=== PATIENT | male | born 1950 | race Caucasian/White ===

== ENCOUNTER 2019-03-29 08:11 | Outpatient (CLI) | payer MEDICARE, SELFPAY ==
--- NOTE | 2019-04-04 02:34 | SLEEP_ITS ---
Split Night Sleep Study DATE OF STUDY: 03/29/2019 REASON FOR THIS STUDY: Obstructive sleep apnea syndrome. HISTORY: This patient is a 68-year-old male, 71 inches tall, weighing 240 pounds with a body mass index of 33.5. He has occasional daytime fatigue and awakens with a dry mouth. He is a loud snorer. He has central obesity. He has a history of polycythemia requiring phlebotomy. Normal bedtime is 9 p.m., waking at 5 in the morning, feeling exhausted. He does not have morning headaches. He denies taking naps in the day. He does fall asleep inappropriately during the day and has drowsiness while driving. He does not fall asleep while driving. He does become sleepy while watching television or reading. This has been going on for longer than 2 years. He occasionally snores loudly enough that others complain about it. He rarely has trouble sleeping with a cold. He does not gasp for breath at night. He rarely has breathing problems reported to him by others. He does not sweat excessively at night or noticed his heart pounding irregularly at night. He does not have loss of muscle tone with strong emotion. He does not feel paralyzed on waking or falling asleep. Does not have vivid dreamlike scenes upon awakening or falling asleep and is not afraid to go to sleep. He does not have nightmares. He frequently remembers his dreams. He rarely has racing thoughts. He does not feel sad, depressed, or anxious. He denies muscular tension, does not notice parts of his body jerking and he does not kick at night. He does not have crawly achy feelings in his legs or leg pain at night. He does not have morning jaw pain. He rarely grinds his teeth at night. He rarely is bothered by pain during the day. He is not awakened with pain at night. He occasionally wakes up feeling stiff in the morning, rarely with sore achy muscles. He has a dizziness. Normal bedtime is 11 p.m., taking 5 to 10 minutes to fall asleep, typically waking twice at night for 3 to 4 minutes. During that time, he will use the bathroom. He wakes for the day at 6:30 a.m. He does not take naps. A short nap is really not refreshing. He feels better in the morning than other times a day. MEDICAL COMORBIDITIES: 1. Hypertension. 2. Seasonal allergies. 3. Polycythemia. 4. Gastroesophageal reflux disease. 5. Hyperlipidemia. MEDICATIONS: 1. Finasteride 5 mg a day. 2. Lisinopril 40 mg a day. 3. Metoprolol succinate extended release 100 mg daily. 4. Restasis 0.05% drops daily. 5. Indapamide 2.5 mg daily. 6. Aspirin 81 mg a day. HABITS: Never smoked tobacco. Caffeine, 2 to 3 per day. No alcohol. No recreational drugs. DESCRIPTION OF THE STUDY: On the Shelly Sleepiness Scale, the score is 4. This was conducted as a split night nocturnal polysomnogram using the [employer] multiple channel system including EOG, EEG, submental EMG, EKG, nasal and oral airflow using thermistors and nasal pressure sensors, chest and abdominal belts, body position data and pulse oximetry. The study was scored using [facility] guidelines. During the baseline portion, 194 minutes of recording time occurred. A 129.2 minutes of sleep occurred. The patient had a sleep efficiency of 66.6%. Sleep latency was 20.4 minutes. REM latency was 130.5 minutes. There were 33 awakenings and the patient spent 44.5 minutes awake after sleep onset. Sleep architecture showed 22.8% stage I sleep, 67.5% stage II sleep, no stage III sleep, and 9.7% stage REM. The patient did not have any supine sleep during this portion. Sleep was very fragmented with frequent shifts between wake stage I and stage II. The apnea-hypopnea index was 15.8, the obstructive index was 13.5, and the central index was 2.3. The patient had 5 obstructive hypopneas in non-sup
== END 2019-03-29 08:12 | disposition home or self-care (01) ==
LOC: ANHCSM 08:15
PROVIDERS: Visit Provider Family Medicine
DX: G47.33 Obstructive sleep apnea (adult) (pediatric) (principal); D75.1 Secondary polycythemia
CPT/HCPCS: 95811

== ENCOUNTER 2021-03-12 00:14 | Day surgery (SDC) | payer MEDICARE, SELFPAY ==
[2021-02-25 13:35] VITALS: BMI 35.2
[2021-03-12 08:20] VITALS: BP 121/75; PULSE 103; RESP 18; TEMP 36.6; O2SAT 96; BMI 34.6
[2021-03-12] MEDS: LACTATED RINGERS 1,000 ML 150 ML IV CONT (08:37)
--- NOTE | 2021-03-12 08:43 | WPDANESEPPF ---
Anes - Initial Pre Proc Eval Procedure: Operation Date: 03/12/21 09:45 Proposed Procedures p Screening Colonoscopy - Bandar Matute MD Date/Time: 03/12/21 08:43 Surgeon: Bandar Matute MD Pre Op Diagnosis: neoplasm screening Patient Data Age: 70 Gender: M Height: 1.8 m Weight: 112.6 kg Last Vital Signs Temp 36.6 C 03/12/21 08:20 Pulse 103 H 03/12/21 08:20 Resp 18 03/12/21 08:20 BP 121/75 03/12/21 08:20 Pulse Ox 96 03/12/21 08:20 Allergies Allergy/AdvReac Type Severity Reaction Status Date / Time castor oil Allergy Unknown THROAT AND Verified 03/12/21 08:29 EYES SWELL grass pollen Allergy Unknown Unknown Verified 03/12/21 08:29 castor beans Allergy Mild Swelling Uncoded 02/25/21 13:32 Home Medications Medication Instructions Recorded Confirmed Type aspirin 325 mg tablet 325 mg PO DAILY 01/19/19 03/12/21 History finasteride 5 mg tablet 5 mg PO DAILY 01/19/19 03/12/21 History cyclosporine 0.05 % eye drops in a 1 drop EACH EYE Q12H 01/25/19 03/12/21 History dropperette epinephrine 0.3 mg/0.3 mL 0.3 mg IM ONCE 01/25/19 03/12/21 History injection, auto-injector atorvastatin 20 mg tablet 20 mg PO QHS #90 tablet 09/13/20 03/12/21 Rx pantoprazole 40 mg tablet,delayed 40 mg PO QAM #90 tablet 09/13/20 03/12/21 Rx release indapamide 2.5 mg tablet 2.5 mg PO QAM #90 tablet 02/28/21 03/12/21 Rx lisinopril 40 mg tablet See Rx Instructions .ROUTE 02/28/21 03/12/21 Rx .COMPLEX #90 tablet metoprolol succinate 100 mg 100 mg PO DAILY #90 tablet 03/01/21 03/12/21 Rx tablet,extended release 24 hr Patient hx anesthesia problems: none Family hx anesthesia problems: none Results Review: All pre-operative results and documents have been reviewed as part of the pre-operative evaluation. [facility] Past Medical History Medical History CKD (chronic kidney disease) stage 3, GFR 30-59 ml/min Environmental allergies GERD with esophagitis HTN (hypertension) Hyperlipidemia ROSA ISELA on CPAP Polycythemia Prediabetes Surgical History Surgical History History of left hip replacement 2018 History of sinus surgery (~1991) polypectomy History of tonsillectomy (~7) Family History Family History Grandparent Diabetes mellitus Other Diabetes mellitus Social History Social History Smoking status: Never smoker Second hand tobacco smoke exposure: No Alcohol intake: current Alcohol use details: seldom Substance use: never Substance use type: does not use Living arrangements: with family Spiritual care concerns: No Anes - Eval Final PreProcedure Day of Procedure 03/12/21 08:43 Patient weight: obese Heart: regular rate and rhythm Lungs: clear to auscultation Airway: Mallampati scale class II Neurological: alert and oriented Last oral intake: >/= 8 hours ASA classification: III Emergent: no Anesthetic plan: proceed Anesthesia type and monitoring: general GIVS and standard monitoring Results Review: All pre-operative results and documents have been reviewed as part of the pre-operative evaluation. Informed Consent: The patient's anesthetic plan and its attendant risks and benefits were discussed with the patient/family/POA. Questions were solicited and answers provided to the satisfaction of the patient/family/POA.
--- NOTE | 2021-03-12 09:34 | PM.HPGS ---
History of Present Illness History of Present Illness Consent: Risks, benefits, and alternatives have been discussed and questions answered. Patient agrees to proceed with procedure. Chief complaint: neoplasm screening Narrative: Kehinde Villanueva is a 70 year old male here for first screening colonoscopy Review of Systems Constitutional: Constitutional: Denies headache(s) and Denies weakness Eyes: Eyes: Denies blurry vision ENT: Reports Normal hearing present, Denies headache(s) and Denies neck pain Cardiovascular: Cardiovascular: Denies chest pain and Denies dyspnea Respiratory: Respiratory: Denies dyspnea Gastrointestinal: Gastrointestinal: Reports no additional gastrointestinal complaints Genitourinary: Genitourinary: Denies dysuria Musculoskeletal: Musculoskeletal: Denies neck pain Integumentary/Breasts: Skin/Breast: Denies dry skin Neurologic: Reports Normal hearing present, Denies headache(s) and Denies weakness Psychiatric: Psychiatric: Denies anxiety Endocrine: Endocrine: Denies change in body appearance Hematologic/Lymphatic: Hematologic/Lymphatic: Denies easy bleeding Allergic/Immunologic: Allergic/Immunologic: Denies urticaria [facility] Past Medical History Medical History (Updated 03/12/21 @ 09:34 by Bandar Matute MD) CKD (chronic kidney disease) stage 3, GFR 30-59 ml/min Colon cancer screening Environmental allergies GERD with esophagitis HTN (hypertension) Hyperlipidemia ROSA ISELA on CPAP Polycythemia Prediabetes Surgical History Surgical History History of left hip replacement 2018 History of sinus surgery (~1991) polypectomy History of tonsillectomy (~1957) Family History Family History Grandparent Diabetes mellitus Other Diabetes mellitus Social History Social History Smoking status: Never smoker Second hand tobacco smoke exposure: No Alcohol intake: current Alcohol use details: seldom Substance use: never Substance use type: does not use Living arrangements: with family Spiritual care concerns: No Meds Home Medications and Allergies Home Medications Medication Instructions Recorded Confirmed Type aspirin 325 mg tablet 325 mg PO DAILY 01/19/19 03/12/21 History finasteride 5 mg tablet 5 mg PO DAILY 01/19/19 03/12/21 History cyclosporine 0.05 % eye drops in a 1 drop EACH EYE Q12H 01/25/19 03/12/21 History dropperette epinephrine 0.3 mg/0.3 mL 0.3 mg IM ONCE 01/25/19 03/12/21 History injection, auto-injector atorvastatin 20 mg tablet 20 mg PO QHS #90 tablet 09/13/20 03/12/21 Rx pantoprazole 40 mg tablet,delayed 40 mg PO QAM #90 tablet 09/13/20 03/12/21 Rx release indapamide 2.5 mg tablet 2.5 mg PO QAM #90 tablet 02/28/21 03/12/21 Rx lisinopril 40 mg tablet See Rx Instructions .ROUTE 02/28/21 03/12/21 Rx .COMPLEX #90 tablet metoprolol succinate 100 mg 100 mg PO DAILY #90 tablet 03/01/21 03/12/21 Rx tablet,extended release 24 hr Allergies Allergy/AdvReac Type Severity Reaction Status Date / Time castor oil Allergy Unknown THROAT AND Verified 03/12/21 08:29 EYES SWELL grass pollen Allergy Unknown Unknown Verified 03/12/21 08:29 castor beans Allergy Mild Swelling Uncoded 02/25/21 13:32 Vital Signs Vital Signs - 24 hr 03/12/21 08:20 Temperature 97.9 F Pulse Rate 103 H Respiratory Rate 18 Blood Pressure 121/75 Pulse Oximetry 96 Exam Const: General: comfortable and no acute distress HENMT: General nose exam: Normal nares present Eyes: General: appearance normal, both eyes and all related structures Neck: Neck: no JVD Resp: Auscultation: clear to auscultation bilaterally Cardio: Rate: regular rate Rhythm: regular rhythm GI: Inspection: non-distended GI Palp: Yes Soft to palpation Skin: General skin exam: normal color Neuro
[2021-03-12 10:02] VITALS: BP 97/56; PULSE 82; RESP 21; O2SAT 95
[2021-03-12 10:12] VITALS: BP 98/61; PULSE 78; RESP 19; O2SAT 94
[2021-03-12 10:22] VITALS: BP 104/56; PULSE 76; RESP 22; O2SAT 93
--- NOTE | 2021-03-12 10:22 | SUR.PHASEII ---
Discharge delay: Pt's spouse will be taking a cab to pick him up. States estimated time of arrival 45min.
== END 2021-03-12 11:00 | disposition home or self-care (01) ==
PROVIDERS: PCP Family Medicine; Visit Provider Internal Medicine Gastroenterology
PROC: 0DJD8ZZ Inspection of Lower Intestinal Tract, Via Natural or Artificial Opening Endoscopic (ICD-10-PCS; CPT 45378; principal; 2021-03-12 09:45)
DX: Z12.11 Encounter for screening for malignant neoplasm of colon (principal); D12.3 Benign neoplasm of transverse colon; K63.5 Polyp of colon; K57.30 Diverticulosis of large intestine without perforation or abscess without bleeding; K64.8 Other hemorrhoids; Q27.33 Arteriovenous malformation of digestive system vessel; I12.9 Hypertensive chronic kidney disease with stage 1 through stage 4 chronic kidney disease, or unspecified chronic kidney disease; N18.30 Chronic kidney disease, stage 3 unspecified; K21.9 Gastro-esophageal reflux disease without esophagitis; G47.33 Obstructive sleep apnea (adult) (pediatric); E78.5 Hyperlipidemia, unspecified; D75.1 Secondary polycythemia; R73.03 Prediabetes; Z79.82 Long term (current) use of aspirin; E66.9 Obesity, unspecified; Z68.34 Body mass index [BMI] 34.0-34.9, adult
CPT/HCPCS: 45385; 45380; 88305; J2704; J7120

== ENCOUNTER 2022-11-19 11:53 | Outpatient (CLI) | payer MEDICARE, SELFPAY ==
[2022-11-22 06:10] LABS: Fecal Fat, Ql Normal (Normal)
== END 2022-11-19 11:54 | disposition home or self-care (01) ==
LOC: ANHLAB 11:54
PROVIDERS: PCP Family Medicine; Visit Provider Nurse Practitioner Family
DX: R19.7 Diarrhea, unspecified (principal)
CPT/HCPCS: 82705